=== PATIENT | male | born 1965 | race Caucasian/White ===

== ENCOUNTER 2017-06-18 08:50 | Emergency (ER) | payer OTHER ==
[2017-06-18] MEDS: KETOROLAC 15 MG INJ IM (11:08)
== END 2017-06-18 12:02 | disposition home or self-care (01) ==
LOC: FTE 08:50
DX: M10.9 Gout, unspecified (principal); F17.210 Nicotine dependence, cigarettes, uncomplicated
CPT/HCPCS: 96372; 99284-25

== ENCOUNTER 2017-10-17 14:55 | Emergency (ER) | payer OTHER | END 2017-10-17 15:14 | disposition home or self-care (01) | LOC: E/R 14:55 | DX: J20.9 Acute bronchitis, unspecified (principal); Z87.891 Personal history of nicotine dependence | CPT/HCPCS: 99284; Z7502 ==

== ENCOUNTER 2018-02-13 08:09 | Emergency (ER) | payer OTHER | END 2018-02-13 08:42 | disposition home or self-care (01) | LOC: FTE 08:09 | DX: H60.92 Unspecified otitis externa, left ear (principal); F17.210 Nicotine dependence, cigarettes, uncomplicated; I10 Essential (primary) hypertension | CPT/HCPCS: 99283; Z7502 ==

== ENCOUNTER 2018-03-20 17:37 | Emergency (ER) | payer OTHER ==
[2018-03-20] MEDS: ACETAMINOPHEN 500 MG TAB PO (18:28)
[2018-03-20] MEDS: IBUPROFEN 200 MG TAB PO (18:29)
== END 2018-03-20 19:44 | disposition home or self-care (01) ==
LOC: FTE 19:44
DX: S33.5XXA Sprain of ligaments of lumbar spine, initial encounter (principal); I10 Essential (primary) hypertension; F17.210 Nicotine dependence, cigarettes, uncomplicated; V49.49XA Driver injured in collision with other motor vehicles in traffic accident, initial encounter
CPT/HCPCS: 72040; 72072; 72100; 99283-25

== ENCOUNTER 2019-02-14 12:00 | Emergency (ER) | payer SELFPAY, OTHER | END 2019-02-15 15:02 | disposition left against medical advice (07) | LOC: FTE 02-15 15:02 | DX: Z53.21 Procedure and treatment not carried out due to patient leaving prior to being seen by health care provider (principal) ==